=== PATIENT | female | born 1960 | race Caucasian/White ===

== ENCOUNTER 2022-03-16 14:31 | Outpatient (CLI) | payer OTHER, SELFPAY ==
--- NOTE | 2022-03-16 14:39 | MM_ITS ---
WS: [email or web address] BILATERAL 3D TOMOSYNTHESIS DIGITAL SCREENING MAMMOGRAPHY WITH CAD CLINICAL INFORMATION: SCREENING HISTORY: Screening mammogram. No current complaints. COMPARISON: Outside examination 8 14,018 TECHNIQUE: Bilateral CC and MLO views. FINDINGS: The breasts are composed of heterogeneous fibroglandular density tissue, which can limit the detectio n of small underlying mass lesions. Vascular calcification. Ovoid nodule upper inner quadrant RIGHT b reast measuring 10 mm appears stable compared to 2018. Previously diagnostic mammography was recommen ded of this lesion. However, no records showing that was performed. Recommend RIGHT diagnostic mammography with spot compression views of this area and ultrasound for fu rther evaluation. In addition, dense spiculated lesion subareolar LEFT breast measuring 10 mm appears more prominent co mpared to previous. Recommend spot compression views and ultrasound evaluation of this lesion. This i s best seen on the cc view. MM/[place] [id number] BI-RADS: 0-Incomplete: Need additional imaging evaluation FOLLOW UP: Need Additional Imaging Recommend bilateral breast diagnostic mammography with spot compression views a nd bilateral ultrasound
== END 2022-03-16 14:32 | disposition home or self-care (01) ==
LOC: RAD 14:35
PROVIDERS: PCP Obstetrics & Gynecology; Visit Provider Obstetrics & Gynecology
DX: Z12.31 Encounter for screening mammogram for malignant neoplasm of breast (principal)
CPT/HCPCS: 77063; 77067

== ENCOUNTER 2022-04-15 12:42 | Outpatient (CLI) | payer OTHER, SELFPAY ==
--- NOTE | 2022-04-15 13:08 | MM_ITS ---
WS: [email or web address] BILATERAL 3D TOMOSYNTHESIS DIGITAL DIAGNOSTIC MAMMOGRAPHY WITH CAD CLINICAL INFORMATION: INCONCLUSIVE MAMMOGRAM COMPARISON: February 2022 and May 2018 TECHNIQUE: Bilateral CC, MLO, and ML views. FINDINGS: The breasts are composed of heterogeneous fibroglandular density, which can limit the detection of sm all underlying mass lesions. Vascular calcification. Stable bilateral nodular breast tissue. This sta ble ovoid nodule upper inner quadrant RIGHT breast measuring 10 mm is stable. Density spiculated lesion subareolar LEFT breast partially compresses out today measuring 10 mm. Ultr asound is pending. ULTRASOUND BREAST BILATERAL TECHNIQUE: Ultrasound bilateral breast focused area of concern. CLINICAL INFORMATION: INCONCLUSIVE MAMMOGRAM COMPARISON: None. FINDINGS: RIGHT BREAST: Ultrasound RIGHT breast 12 to 6:00 position. Incidental benign cyst at the 12:00 positi on measuring 8 x 9 x 4 mm 1 cm from the nipple. No other suspicious abnormality RIGHT breast. LEFT BREAST: Ultrasound LEFT breast 12-6 clock position. Dense underlying heterogeneous breast tissue . Shadowing lesion at the 4:00 position appears to elongate out and likely represents dense parenchym al fibrosis tissue. This likely corresponds to the mammographic lesion. A few areas of incidental dalia jorden ectasia. No focal lesions to target for biopsy. MM/[place] [id number] IMPRESSION: BI-RADS: 2-Benign FOLLOW UP: 1 Year Follow-up Recommend return to annual screening mammography.
== END 2022-04-15 12:43 | disposition home or self-care (01) ==
LOC: RAD 12:43
PROVIDERS: PCP Obstetrics & Gynecology; Visit Provider Obstetrics & Gynecology
DX: N60.01 Solitary cyst of right breast (principal); R92.2 Inconclusive mammogram
CPT/HCPCS: 76642; 77062

== ENCOUNTER 2022-10-06 15:20 | Outpatient (CLI) | payer MEDICAID, SELFPAY ==
--- NOTE | 2022-10-06 15:40 | XR_ITS ---
WS: [email or web address] SCREENING DEXA SCAN [employer] CLINICAL INFORMATION: MENOPAUSAL STATE COMPARISON: None. FINDINGS: The L1-L4 bone mineral density measures 0.780 g/cm2. This corresponds to a T score score of -3.3 and Z score of -1.5. Left femoral neck bone mineral density measures 0.599 g/cm2. This corresponds to a T score of -3.2 an d Z score of -1.8. Right femoral neck bone mineral density measures 0.651 g/cm2. This corresponds to a T score -2.8of an d Z score of -1.4. Mean femoral neck bone mineral density measures 0.625 g/cm2. This corresponds to a T score of -3.0 an d Z score of -1.6. XR/XR DEXA axial skeleton* [id number] IMPRESSION: Osteoporosis lumbar spine. Osteoporosis femoral necks. Patient's FRAX calculated 10 year probability for major osteoporotic fracture i s 13.6 % and osteoporotic hip fracture is 3.5%.
== END 2022-10-06 15:21 | disposition home or self-care (01) ==
LOC: RAD 15:21
PROVIDERS: PCP Nurse Practitioner; Referring Provider Orthopaedic Surgery; Visit Provider Nurse Practitioner
DX: Z78.0 Asymptomatic menopausal state (principal); M81.0 Age-related osteoporosis without current pathological fracture
CPT/HCPCS: 77080

== ENCOUNTER → 2022-10-27 13:44 | Outpatient (BNVA) | payer MEDICAID, SELFPAY | PROVIDERS: PCP Nurse Practitioner; Referring Provider Nurse Practitioner; Visit Provider Orthopaedic Surgery | DX: M54.50 Low back pain, unspecified (principal); M54.16 Radiculopathy, lumbar region | CPT/HCPCS: 72110; 73522 ==

== ENCOUNTER 2023-04-21 14:25 | Outpatient (CLI) | payer MEDICAID, SELFPAY ==
--- NOTE | 2023-04-21 14:34 | MM_ITS ---
WS: [email or web address] VIEWS: MLO and CC views both breasts. 3D digital tomosynthesis is also included in this exam. Comparison made with prior exam of 06/06/2018, 03/16/2022.. Findings: There was no sign of mass, architectural distortion or suspicious calcification in either breast. Sta ble appearing nodular densities in both breasts.There are scattered areas of fibroglandular density MM/[place] [id number] Impression: BI-RADS: 2-Benign finding. FOLLOW-UP: 1 Year Follow-up This mammogram was also analyzed by the Computer Aided Detection System [facility]2 [facility] e [facility].
== END 2023-04-21 14:26 | disposition home or self-care (01) ==
LOC: RAD 14:26
PROVIDERS: PCP Nurse Practitioner; Visit Provider Nurse Practitioner
DX: Z12.31 Encounter for screening mammogram for malignant neoplasm of breast (principal)
CPT/HCPCS: 77063; 77067

== ENCOUNTER 2024-02-01 13:34 | Outpatient (CLI) | payer MEDICAID, SELFPAY ==
--- NOTE | 2024-02-01 13:54 | MR_ITS ---
WS: [email or web address] MRI LUMBAR SPINE NONCONTRAST TECHNIQUE: Sagittal T1, T2 and STIR imaging. Axial T1 and T2 imaging. CLINICAL INFORMATION: PAIN COMPARISON: None. FINDINGS: Lumbar curve convex LEFT. 5 nonrib-bearing lumbar vertebral bodies. Counting performed from the crani ocervical junction. S1 is partially lumbarized with a residual disc space at this level. Recommend pl ain film correlation prior to surgical intervention. Disc space narrowing worse at L5-S1. L1-L2: Mild annular bulging. Mild facet arthropathy. Spinal canal and foramen are patent. L2-L3: Mild annular bulging. Mild facet arthropathy. Slight narrowing of the RIGHT subarticular reces s. Spinal canal and foramen are patent. L3-L4: No significant disc bulging. Mild facet arthropathy. Spinal canal and foramen are patent. L4-L5: Mild annular bulging. Slight effacement of the ventral thecal sac. Mild narrowing of the subar ticular recess. Mild RIGHT foraminal narrowing with a tiny RIGHT foraminal protrusion. Moderate facet arthropathy. L5-S1: Mild annular bulging with slight impingement of traversing LEFT S1 nerve root in the subarticu lar recess. Mild facet arthropathy. Moderate to severe LEFT foraminal narrowing impinges the exiting LEFT L5 nerve root. RIGHT foramen is patent. Mild facet arthropathy. S1-S2: S1 is partially lumbarized. Spinal canal and foramen are patent. Mild facet arthropathy. Paravertebral soft tissues: Normal. Partially visualized suspected cholelithiasis at the edge of the [id number]. This could be followe d up with ultrasound. IMPRESSION: 1. Counting performed from the craniocervical junction. S1 is partially lumbarized with a residual disc space at this level. Recommend plain film correlation prior to surgical intervention 2. Mild disc bulging L5-S1 with impingement LEFT subarticular recess and LEFT S1 nerve root. Moderat e to severe LEFT L5-S1 foraminal narrowing impinges the exiting LEFT L5 nerve root. 3. Mild annular bulging L4-5 with narrowing of the subarticular recess bilaterally. Small RIGHT fora melba protrusion with mild RIGHT foraminal narrowing. 4. Partially visualized suspected cholelithiasis. This can be followed up with ultrasound. This is a t the edge of the [id number].
== END 2024-02-01 13:35 | disposition home or self-care (01) ==
LOC: RAD 13:35
PROVIDERS: PCP Nurse Practitioner; Visit Provider Nurse Practitioner
DX: M51.37 Other intervertebral disc degeneration, lumbosacral region (principal); M48.07 Spinal stenosis, lumbosacral region
CPT/HCPCS: 72148

== ENCOUNTER 2024-08-28 06:18 | Outpatient (CLI) | payer MEDICARE, MEDICAID, SELFPAY ==
--- NOTE | 2024-08-28 06:30 | USCV_ITS ---
Michelle Sharp Age: 64 Gender: F : 1960 Exam Date: 08/28/2024 06:27 Ordering Phys: Herve Bell Technologist: CHRIS [place] [facility] [place]IN Risk Factors: Previous Vascular Surgery: RIGHT LEFT Waveform Velocity (cm/s) Velocity (cm/s) Waveform Monophasic 52.0 Iliac Prox 57.4 Monophasic Monophasic 57.8 Iliac Mid 70.9 Monophasic Monophasic 43.9 Iliac Distal 68.[address] ME[address]ANIC 53.0 Monophasic Monophasic 66.0 SFA Prox 71.0 Monophasic Monophasic 42.0 SFA Mid 52.0 Monophasic Monophasic 36.0 SFA Dist 48.0 Monophasic Monophasic 28.0 POP 49.0 Monophasic N/A HEAD OF GLOBAL [employer]ATEG[employer]NERSHIPS 17.0 Monophasic N/A DPA N/A FINDINGS Unable to obtain JOSE's Monophasic, low velocity, continuous Doppler waveforms bilaterally. No Doppler flow signals in the dorsalis pedis and posttibial artery on the right side and dorsalis pedis artery on the left side CONCLUSIONS 1. Abnormal Doppler waveforms bilaterally suggestive of severe aortoiliac disease with collateral filling of the iliac arteries bilaterally 2. 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
== END 2024-08-28 06:19 | disposition home or self-care (01) ==
LOC: RAD 06:19
PROVIDERS: PCP Nurse Practitioner; Visit Provider Nurse Practitioner
DX: I70.8 Atherosclerosis of other arteries (principal); I70.92 Chronic total occlusion of artery of the extremities
CPT/HCPCS: 93925

== ENCOUNTER 2025-02-07 14:10 | Outpatient (CLI) | payer MEDICARE, MEDICAID, SELFPAY ==
--- NOTE | 2025-02-07 14:16 | XR_ITS ---
WS: [email or web address] SCREENING DEXA SCAN [email or web address] CLINICAL INFORMATION: AGE RELATED OSTEOPOROSIS W/O CURRENT PATHOLOGICAL FX COMPARISON: 2021 FINDINGS: The L1-L4 bone mineral density measures 0.789 g/cm2. This corresponds to a T score score of -3.3 and Z score of -1.1. Left femoral neck bone mineral density measures 0.588 g/cm2. This corresponds to a T score of -3.3 and Z score of -1.7. Right femoral neck bone mineral density measures 0.639 g/cm2. This corresponds to a T score -2.9of and Z score of -1.3. Mean femoral neck bone mineral density measures 0.613 g/cm2. This corresponds to a T score of -3.1 and Z score of -1.5. XR/XR DEXA axial skeleton* [id number] IMPRESSION: Osteoporosis lumbar spine. Osteoporosis femoral necks. Patient's FRAX calculated 10 year probability for major osteoporotic fracture i s 15.1% and osteoporotic hip fracture is 4.6%. Bone density lumbar spine increased 1.2% Bone density femoral necks decreased -1.9%
== END 2025-02-07 14:11 | disposition home or self-care (01) ==
LOC: RAD 14:11
PROVIDERS: PCP Nurse Practitioner; Visit Provider Nurse Practitioner
DX: M81.0 Age-related osteoporosis without current pathological fracture (principal)
CPT/HCPCS: 77080

== ENCOUNTER 2025-09-10 14:09 | Outpatient (CLI) | payer OTHER, MEDICAID, SELFPAY ==
--- NOTE | 2025-09-10 15:20 | MM_ITS ---
WS: [email or web address] BILATERAL 3D TOMOSYNTHESIS DIGITAL SCREENING MAMMOGRAPHY WITH CAD CLINICAL INFORMATION: SCREENING HISTORY: Screening mammogram. No current complaints. COMPARISON: 2022 TECHNIQUE: Bilateral CC and MLO views. FINDINGS: The breasts are composed of heterogeneous fibroglandular density tissue, which can limit the detection of small underlying mass lesions. No suspicious mass, asymmetry, calcifications, or architectural distortion. No evidence of malignancy. Vascular calcification. Stable nodularity RIGHT breast. MM/MM [facility] tomosynthesis [id number] IMPRESSION: DENSITY: The breasts are heterogeneously dense, which may obscure small masses. BI-RADS: 2 - Benign FOLLOW UP: 1 Year Follow-up Recommend return to annual screening mammography.
== END 2025-09-10 14:10 | disposition home or self-care (01) ==
LOC: MOBLMAM 14:11
PROVIDERS: PCP Nurse Practitioner; Visit Provider Nurse Practitioner
DX: Z12.31 Encounter for screening mammogram for malignant neoplasm of breast (principal); R92.333 Mammographic heterogeneous density, bilateral breasts; R92.323 Mammographic fibroglandular density, bilateral breasts; R92.1 Mammographic calcification found on diagnostic imaging of breast; N63.10 Unspecified lump in the right breast, unspecified quadrant
CPT/HCPCS: 77063; 77067